=== PATIENT | female | born 1965 | race Caucasian/White ===

== ENCOUNTER 2019-05-12 14:53 | Emergency (ER) | payer MEDICARE, SELFPAY ==
--- NOTE | ~2019-05-12 | XR_ITS ---
EXAMINATION: XR wrist RT min 3V EXAM DATE: 05/12/2019 15:11 INDICATION: No known recent injury provided at this time. Pain of right wrist. Fell 2 days ago. TECHNIQUE: Right wrist frontal, frontal with ulnar deviation, oblique and lateral projections obtain ed and reviewed. There is no prior study for comparison. FINDINGS: Right wrist scapholunate joint space is maintained. There is well-corticated tiny ossifica tion adjacent to ulnar styloid most likely an old ulnar styloid avulsion injury. There are no acute f ractures or dislocations identified. There is no subcutaneous gas. The soft tissue is unremarkable. There are no radiopaque foreign bodies. IMPRESSION: No acute osseous findings suspected. Reviewed, dictated and finalized at location A.
--- NOTE | 2019-05-12 14:56 | ED.UPPEXIN ---
HPI - Extremity Injury (Upper) General Chief Complaint: Extremity Injury, Upper Stated Complaint: Right Wrist Pain Time Seen by Provider: 05/12/19 15:20 Source: patient and RN notes reviewed Mode of arrival: ambulatory Limitations: no limitations History of Present Illness HPI narrative: Patient reports right wrist pain. Reports at [place]lma time she injured the wrist by slamming it into a door frame, she reports that pain has mostly improved. However, she reports yesterday she fell off a garage step and caught herself on the right wrist causing pain. Reports she has been using ice, Aleve. complaint: injury to: right and wrist Related Data Home Medications Medication Instructions Recorded Confirmed No Home Medications 05/12/19 05/12/19 Allergies Allergy/AdvReac Type Severity Reaction Status Date / Time No Known Allergies Allergy Mild Verified 07/05/07 06:58 Review of Systems Review of Systems: Narrative: CONSTITUTIONAL: Denies malaise, chills, sweats, or fever. CARDIOVASCULAR: Denies chest pain, palpitations RESPIRATORY: Denies dyspnea. SKIN: Denies bruising, redness MUSCULOSKELETAL: Reports right wrist pain with mild edema NEUROLOGIC: Denies numbness, weakness. All systems reviewed & are unremarkable except as noted in HPI and below PMFSH Social History Social History Gender identity (if verbalized by the patient): Female Comments At time of signature, agree with nursing past medical, surgical, social and family history. There is no relevant family history pertinent to the presenting complaint Exam Narrative: Exam Narrative: GENERAL: Well-appearing, well-nourished, and in no acute distress. HEAD: Normocephalic, atraumatic. EYES: PERRLA, conjunctivae clear NECK: Supple. CHEST: Speaks in full sentences. No respiratory distress. HEART: Regular rate and rhythm. Normal and equal peripheral pulses. EXTREMITIES: Right wrist, hand, digits right hand have normal strength and sensation, no edema, normal range of motion. 5/5 strength with wrist and digit flexion and extension. Normal sensation with sensitivity to light touch and pain. No clubbing, cyanosis, or edema noted. No tenderness. Skin intact. Normal digital cascade with flexion of fingers, median, ulnar and radial nerve intact. Normal sensation of each side of finger. No open wounds, no skin tenting, no devitalized tissue or atrophy, no trophic changes, no ecchymosis, no obvious deformity, alignment normal, no point tenderness, nearby joints and structures intact. Distal pulses palpable and equal bilaterally, skin warm, dry, pink. Capillary refill less than 3 seconds. SKIN: Warm, dry, no rash. NEURO: Alert and oriented x3. PSYCH: Normal mood and affect Course Course Emergency Course: Patient is aware of diagnosis, understands and agrees to treatment plan. Anticipatory guidance given. Patient agrees to follow-up as directed and is aware of reasons to seek care at the emergency department. Portions of this record may have been created with voice recognition software Vital Signs Vital signs: Vital Signs Temperature 98.9 F 05/12/19 15:13 Pulse Rate 101 H 05/12/19 15:13 Respiratory Rate 20 05/12/19 15:13 Blood Pressure 114/90 05/12/19 15:13 Pulse Oximetry 99 05/12/19 15:13 Temperature 98.9 F 05/12/19 15:13 Pulse Rate 101 H 05/12/19 15:13 Respiratory Rate 20 05/12/19 15:13 Blood Pressure 114/90 05/12/19 15:13 Pulse Oximetry 99 05/12/19 15:13 Reviewed. MDM - Extremity Injury (Upper) MDM Narrative Medical decision making narrative: Patients injury and pain is consistent with musculoskeletal etiology. No signs of neurological or vascular compromise on exam. Compartments and tissues are soft without signs of compartment syndrome. Pain is felt appropriate for further evaluation on an outpatient basis. Differential Diagnosis Differential diagnosis: Likely sprain and strain of wrist, fracture of wrist and fracture of hand I
[2019-05-12 15:13] VITALS: BP 114/90; PULSE 101; RESP 20; TEMP 37.2; O2SAT 99
== END 2019-05-12 15:38 | disposition home or self-care (01) ==
PROVIDERS: Emergency Provider Nurse Practitioner; PCP Nurse Practitioner Adult Health
DX: S63.501A Unspecified sprain of right wrist, initial encounter (principal); S66.911A Strain of unspecified muscle, fascia and tendon at wrist and hand level, right hand, initial encounter; W10.9XXA Fall (on) (from) unspecified stairs and steps, initial encounter
CPT/HCPCS: 73110; 99203; G0463

== ENCOUNTER 2020-01-19 16:20 | Emergency (ER) | payer MEDICARE, SELFPAY ==
--- NOTE | ~2020-01-19 | XR_ITS ---
EXAMINATION: XR shoulder RT min 2V INDICATION: Right shoulder pain TECHNIQUE: Four views of the right shoulder are submitted. COMPARISON: None FINDINGS: Normal alignment. No fracture. 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 Soft tissues are unremarkable. Surgical changes are noted in the cervical spine. IMPRESSION: 1. No acute osseous abnormality. Reviewed, dictated and finalized at location A. HT TECHNICIAN
[2020-01-19 16:43] VITALS: BP 134/85; PULSE 96; RESP 16; TEMP 36.1; O2SAT 97
--- NOTE | 2020-01-19 19:08 | ED.GENADULT ---
HPI - General Adult General Chief complaint: Extremity Injury, Upper Stated complaint: Right shoulder pain Time Seen by Provider: 01/19/20 17:51 Source: patient Mode of arrival: ambulatory Limitations: no limitations History of Present Illness HPI narrative: Patient presents with chief complaint of right shoulder discomfort that presented approximately 1 week ago after falling onto the shoulder while cleaning. Patient states that it was sore when she still have range of motion so she has been applying ice but she still has discomfort especially when laying on the posterior aspect of the arm abducted over her shoulder or trying to sleep. Patient denies any prior fractures or injuries to the shoulder. 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 Patient denies any head impact, loss of consciousness or any other injury. Related Data Allergies Allergy/AdvReac Type Severity Reaction Status Date / Time No Known Allergies Allergy Mild Verified 01/19/20 17:54 Review of Systems Review of Systems: Narrative: CONSTITUTIONAL: Denies fever, chills, or sweats. EYES: Denies visual changes, redness, or discharge. ENT: Denies rhinorrhea, congestion, sore throat, or otalgia. CARDIOVASCULAR: Denies chest pain, palpitations, or edema. RESPIRATORY: Denies cough or dyspnea. GASTROINTESTINAL: Denies abdominal pain, nausea, vomiting, or diarrhea. GENITOURINARY: Denies dysuria or hematuria. SKIN: Denies rash or itching. MUSCULOSKELETAL: Reports right shoulder pain denies back pain or myalgia. NEUROLOGIC: Denies headache, numbness, dizziness, or weakness. PSYCHIATRIC: Denies anxiety or depression. PMFSH Social History Social History Gender identity (if verbalized by the patient): Female Exam Narrative: Exam Narrative: GENERAL: Well-appearing, well-nourished, and in no acute distress. HEAD: Normocephalic, atraumatic. EYES: PERRLA and EOMI. CHEST: Clear to auscultation. No respiratory distress. No wheezes rales or rhonchi HEART: Regular rate and rhythm. No murmur heard. Normal peripheral pulses. EXTREMITIES: No outward signs of deformity or edema to the right shoulder. Patient able to abduct but there is pain with abduction over 90 degrees. Patient is able to internally and externally rotate the shoulder but there is discomfort. 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 There is pain to the anterior aspect of the shoulder as well as the posterior aspect of the shoulder without deformity. SKIN: Warm, dry, no rash. NEURO: No focal deficits. Alert and oriented x3. PSYCH: Normal mood and affect. Course Vital Signs Vital signs: Vital Signs Temperature 97 F L 01/19/20 16:43 Pulse Rate 96 01/19/20 16:43 Respiratory Rate 16 01/19/20 16:43 Blood Pressure 134/85 01/19/20 16:43 Pulse Oximetry 97 01/19/20 16:43 Temperature 97 F L 01/19/20 16:43 Pulse Rate 96 01/19/20 16:43 Respiratory Rate 16 01/19/20 16:43 Blood Pressure 134/85 01/19/20 16:43 Pulse Oximetry 97 01/19/20 16:43 Medical Decision Making MDM Narrative Medical decision making narrative: Discussed with patient that her x-ray was negative for fracture or dislocation. Discussed with patient and using heat and ice as well as anti-inflammatories and muscle relaxant. Patient has been told that she could have strain or sprain of the tendons and ligaments and it is important to follow-up with her primary care retail service specialist for further investigation as physical therapy or MRI imaging to further evaluate the tendons and ligaments may be required. Patient verbalized understanding and agreement of plan denies any other emergent concerns. Differential Diagnosis Differential Diagnosis: Fracture, sprain, strain Vital Signs Vital Signs: Vital Signs Temperature 97 F L 01/19/20 16:43 Pulse Rate 96 01/19/20 16:43 Respiratory Rate 16 01/19/20 16:43 Blood Pressure 134/85 01/19/20 16:43 Pulse Oximetry 97 01/18
[2020-01-19] MEDS: KETOROLAC 30 MG/ML VIAL (*BKC) IM (19:43)
[2020-01-19 19:45] VITALS: BP 151/86; PULSE 80; RESP 16; TEMP 36.8; O2SAT 97
== END 2020-01-19 19:50 | disposition home or self-care (01) ==
PROVIDERS: Emergency Provider Emergency Medicine; PCP Nurse Practitioner Adult Health
DX: S43.401A Unspecified sprain of right shoulder joint, initial encounter (principal); W19.XXXA Unspecified fall, initial encounter
CPT/HCPCS: 73030; 96372; 99283; J1885

== ENCOUNTER 2020-02-20 09:06 | Outpatient (NON) | payer MEDICARE, SELFPAY ==
[2020-02-20 19:32] LABS: SARS-CoV-2 RNA PCR Negative
== END 2020-02-20 09:07 ==
LOC: ANHCOVIDDT 09:07
PROVIDERS: PCP Nurse Practitioner Adult Health; Visit Provider Nurse Practitioner Adult Health
DX: R06.00 Dyspnea, unspecified (principal); Z20.822 Contact with and (suspected) exposure to COVID-19
CPT/HCPCS: C9803; U0003

== ENCOUNTER 2020-02-25 10:00 | Emergency (ER) | payer MEDICARE, SELFPAY ==
[2020-02-25] VITALS (13 sets, daily range): BP systolic 150–162; BP diastolic 88–102; PULSE 79–106; RESP 18–24; TEMP 36.1; O2SAT 94–97
--- NOTE | ~2020-02-25 | XR_ITS ---
EXAMINATION: XR chest 2V DATE: 02/25/2020 10:50 INDICATION: Palpitations. Wheezing. TECHNIQUE: Frontal and lateral views of the chest were obtained. COMPARISON: Chest 2 views 09/27/2017 FINDINGS: The chest demonstrates clear lungs without pneumonia, pleural effusion, or pneumothorax. Th e heart size is normal. There are changes of anterior and posterior fusion procedures in cervical spi ne. IMPRESSION: 1. No acute cardiopulmonary disease. Reviewed, dictated and finalized at location A. SIONS REPAIR TECHNICIAN
--- NOTE | 2020-02-25 10:30 | ECG_ITS ---
Measurements Intervals [place] Rate: 93 P: 63 NE: 148 QRS: 26 QRSD: 85 T: 37 QT: 318 QTc: 396 Interpretive Statements SINUS RHYTHM INCOMPLETE RIGHT BUNDLE BRANCH BLOCK BASELINE ARTIFACT- II, III, AVL, AVF BORDERLINE ECG Electronically Signed On 02-25-2020 11:15:35 CUSTOMER PROGRAM MANAGER by Tyler Blackman D.O.
[2020-02-25 10:43] LABS: Basophils Absolute Auto 0.1 K/mm3 (0.0-0.1); Basophils Percent Auto 0.7 % (0.2-1.2); Eosinophils Absolute Auto 0.3 K/mm3 (0-0.3); Eosinophils Percent Auto 2.7 % (0-4.4); Hemoglobin 13.5 g/dL (12.0-15.0); Immature Granulocyte Absolute 0.06 K/mm3 (0.00-0.031); Immature Granulocyte Percent A 0.5 % (0-0.5); Lymphocytes Absolute Auto 3.53 K/mm3 (0.9-3.2); Lymphocytes Percent Auto 30.1 % (18.3-44.2); Mean Corpuscular HGB Conc 33.8 g/dl (32-36); Mean Corpuscular Hemoglobin 29.9 pg (26-34); Mean Corpuscular Volume 88.7 fl (80-100); Mean Platelet Volume 9.1 fl (7.4-10.4); Monocytes Absolute Auto 0.8 K/mm3 (0.1-0.6); Monocytes Percent Auto 6.4 % (2.6-8.5); Neutrophils Percent Auto 59.6 % (45.5-73.1); Platelet Count Result 316 k/mm3 (150-375); Red Blood Count 4.51 M/mm3 (4.2-5.4); Red Cell Distribution Width 13.2 % (11.5-14.5); White Blood Count 11.7 K/mm3 (4.5-10.0)
[2020-02-25 10:57] LABS: INR 0.9; Prothrombin Time 12.6 Seconds (11.1-14.7)
[2020-02-25 10:58] LABS: Partial Thromboplastin Time 22.7 SECONDS (22.3-36.8)
[2020-02-25 10:59] LABS: Anion Gap 7 mmol/L (8-16); Blood Urea Nitrogen 17 mg/dL (7-17); Calcium 8.8 mg/dL (8.4-10.2); Carbon Dioxide 26 mmol/L (22-30); Chloride 104 mmol/L (98-107); Estimated CRCL calculation 83 ml/min; Estimated Glomerular Filt Rate > 60; Glucose 105 mg/dL (65-105); Potassium 4.2 mmol/L (3.4-5.0); Sodium 137 mmol/L (137-145)
[2020-02-25 11:10] LABS: Troponin I < 0.012 ng/mL (0.000-0.034)
[2020-02-25] MEDS: KETOROLAC 30 MG/ML VIAL (*BKC) IV PUSH (11:21)
[2020-02-25] MEDS: methylPREDNISolone SOD SUCC 125 MG VIAL IV PUSH (11:22)
[2020-02-25] MEDS: KETOROLAC 30 MG/ML VIAL (*BKC) (11:45)
--- NOTE | 2020-02-25 12:35 | ED.GENADULT ---
HPI - General Adult General Chief complaint: Arrhythmia/Palpitations Stated complaint: sick 3 weeks Time Seen by Provider: 02/25/20 10:25 Source: patient Mode of arrival: ambulatory Limitations: no limitations History of Present Illness HPI narrative: Patient is a 54-year-old female who presents with ear discomfort congestion and nonproductive cough for 3 weeks has been put on antibiotics by primary care and is currently on doxycycline patient had just finished steroids patient notes that she has felt some palpitations today that had her concern denying chest pain though her other concerning symptoms such as shortness of breath vomiting diarrhea patient is only seen primary care. Patient denies any heart history. Patient on arrival notes only mild discomfort to the left ear Related Data Allergies Allergy/AdvReac Type Severity Reaction Status Date / Time No Known Allergies Allergy Mild Verified 01/19/20 17:54 Review of Systems Review of Systems: All systems reviewed & are unremarkable except as noted in HPI and below PMFSH Past Medical History Medical History (Updated 02/25/20 @ 12:40 by Barry Sampson PA-C) COPD (chronic obstructive pulmonary disease) Social History Social History (Updated 02/25/20 @ 12:37 by Barry Sampson PA-C) Smoking status: Current every day smoker Gender identity (if verbalized by the patient): Female Exam Narrative: Exam Narrative: Follow up with your primary care doctor in 5-7 days for re-evaluation. Go to ER for worsening pain, vision changes, nausea/vomiting, fever/chills, weakness, chest pain, shortness of breath, change in mental status etc. or any other concerns. Follow-up with specialty referrals for further evaluation as instructed Stay well-hydrated Take any prescribed medications as directed. Course Course Emergency Course: Patient evaluated in the emergency department no high risk changes in the blood work or imaging will be referred back to primary care for further evaluation of her symptoms as well as given pulmonology and cardiology referrals patient at this time resting comfortably no distress was given Solu-Medrol in the emergency department with improvement of her wheezing. Patient notes she has a rescue inhaler at home. Vital Signs Vital signs: Vital Signs Temperature 97.0 F L 02/25/20 10:20 Pulse Rate 98 02/25/20 10:20 Respiratory Rate 18 02/25/20 10:20 Blood Pressure 162/88 H 02/25/20 10:20 Pulse Oximetry 97 02/25/20 10:20 Temperature 97.0 F L 02/25/20 10:20 Pulse Rate 85 02/25/20 12:00 Respiratory Rate 19 02/25/20 12:00 Blood Pressure 150/102 H 02/25/20 10:31 Pulse Oximetry 96 02/25/20 12:00 Medical Decision Making MDM Narrative Medical decision making narrative: Patients EKGs and labs are without significant high risk changes. Cardiac risk factors were reviewed. Patient is felt likely to be low risk for ACS and reasonable for further risk stratification testing as an outpatient. No chest pain. No other signs or symptoms to suggest aortic dissection. A low-risk Wells criteria is noted. PE is felt to be unlikely. No pneumonia seen on evaluation today. Patient is felt to be ITS Impressions Chest X-Ray 02/25/20 10:57 IMPRESSION: 1. No acute cardiopulmonary disease. for continued evaluation as an outpatient. Vital Signs Vital Signs: Vital Signs Temperature 97.0 F L 02/25/20 10:20 Pulse Rate 98 02/25/20 10:20 Respiratory Rate 18 02/25/20 10:20 Blood Pressure 162/88 H 02/25/20 10:20 Pulse Oximetry 97 02/25/20 10:20 Temperature 97.0 F L 02/25/20 10:20 Pulse Rate 85 02/25/20 12:00 Respiratory Rate 19 02/25/20 12:00 Blood Pressure 150/102 H 02/25/20 10:31 Pulse Oximetry 96 02/25/20 12:00 Lab Data Result diagrams: 02/25/20 10:32 02/25/20 10:32 Labs: Lab Results 02/25/20 02/25/20 02/25/20 Range/Units 10:32 10:32 10:32 WBC 11
== END 2020-02-25 12:50 | disposition home or self-care (01) ==
PROVIDERS: Emergency Provider Emergency Medicine; PCP Nurse Practitioner Adult Health
DX: J20.9 Acute bronchitis, unspecified (principal); R00.2 Palpitations; J44.0 Chronic obstructive pulmonary disease with (acute) lower respiratory infection; F17.200 Nicotine dependence, unspecified, uncomplicated; I45.10 Unspecified right bundle-branch block
CPT/HCPCS: 36415; 71046; 80048; 84484; 85025; 85610; 85730; 93005; 96374; 96375; 99284; J1885; J2930

== ENCOUNTER 2024-05-14 16:11 | Emergency (ER) | payer MEDICARE, SELFPAY ==
--- OUTSIDE RECORDS SUMMARY | 2024-05-14 16:13 | XMS_ITS | Data Portability ---
Author Organization [facility] PAULINEBailey Address [address] [place] [address] Assessment No assessment recorded. Plan of Treatment Reminders Order Date Submit Date Provider Last Modified By Organization Details Last Modified Time Details Appointments None recorded. Lab methicill in resistant staphyloc occus aureus, culture, unspecifi ed specimen 2017 018 [facility], [address] [facility], [address], [place], [address], 8 20:09:05 urinalysi s, dipstick 2016 017 jesus In-Office Order, Internal Use Only DO Not Attach Compendium DO Not Attach Compendium, Do Not Delete/merge, [id number] 7 16:36:27 test, urine 2016 017 jesus In-Office Order, Internal Use Only DO Not Attach Compendium DO Not Attach Compendium, Do Not Delete/merge, [id number] 7 16:36:27 pap, IG + HPV, cervical 2016 017 [facility], [address] [facility], [address], [place], [address], 7 16:17:58 Referral breast surgery referral - Patient intereste d in breast reduction 2014 015 ATHENAFAX Not available 5 14:56:12 Procedures None recorded. Surgeries None recorded. Imaging MAMMO, screening , bilateral 2017 018 bmoser [facility], [address] [place], [address], 8 17:07:59 [facility]AMMO, screening , digital, bilateral 2016 [facility] [address] [place] [address], [address], 7 16:41:57 mammogram , screening 2014 015 bmoser Not available 5 09:57:20 Medication Orders Bactrim DS 800 mg-160 mg tablet 2017 018 [facility] [facility], [facility], [place], [address], 8 15:37:00 mupirocin 2 % topical ointment 2017 018 [facility] [address] [facility], [facility], [place], [address], 8 16:30:00 multivita min tablet 2017 018 INTERFACE [facility] [address] [facility], [address] [facility], [place], [address], 8 15:35:05 [place] 0.25 mg-0.035 mg tablet 2017 018 [facility] [address] [place] [address] [facility], [place], [address], 8 15:35:07 calcium 600 mg (as carbonate )-vitamin D3 20 mcg (800 unit) tablet 2017 018 [facility] [address] [address] [place] [address] [facility], [place], [address], 8 15:35:05 sertralin e 100 mg tablet 2017 018 [facility] [address] [facility], [address] [place], [address], 8 15:35:06 calcium 600 mg (as carbonate )-vitamin D3 20 mcg (800 unit) tablet 2016 017 [facility] [address], [address], 7 16:37:10 multivita min tablet 2016 017 [facility] [facility], [address] [place] [address], [address], 7 16:37:11 [place] 0.25 mg-0.035 mg tablet 2016 017 [facility] [address] [address] [place] [address] [place], [address], 7 16:40:24 sertralin e 100 mg tablet 2016 017 [facility] [address] [address] [facility] [address] [place], [address], 7 16:36:29 Activella 0.5 mg-0.1 mg tablet 2014 015 [id number], [address], [place], [id number], 7 16:39:51 Zoloft 100 mg tablet 2014 015 [id number], [address], [place], [id number], 5 16:06:00 Patient TargetsNo targets recorded. Patient Instructions Encounter Date Encounter Id Patient Instructions Last Modified By Organization Details Last Modified Time 09/15/2014 [id number] learning about breast cancer screening [email or web address] Not available 09/15/2014 16:12:57 learning about menopause mwasserman Not available 09/15/2014 16:05:53 anxiety disorder: care instructions mwasserman Not available 09/15/2014 16:05:52 learning about anxiety disorders mwasserman Not available 09/15/2014 16:05:53 learning about mood disorders mwasserman Not available 09/15/2014 16:05:53 03/21/2016 [id number] mammogram: about this test mwasserman Not available 03/21/2016 16:41:57 seasonal affective disorder: care instructions mwasserman Not available 03/21/2016 16:41:57 learning about mood disorders mwasserman Not available 03/21/2016 16:41:57 02/20/2017 [id number] mammogram: about this test mwasserman Not available 02/20/2017 15:33:19 mammogram screening patient instructions mwasserman Not available 02/20/2017 15:33:19 MRSA: care instructions mwasserman Not available 02/20/2017 15:36:56 learning about menopause mwasserman Not available 02/20/2017 15:35:02 anxiety disorder: care instructions mwasserman Not available 02/20/2017 15:35:02 learning about anxiety disorders mwasserman Not available 02/20/2017 15:35:02 learning about mood disorders mwasserman Not available 02/20/2017 15:33:19 Reason for Referral Breast Surgery Referral for Screening for malignant neoplasm of breast Patient interested in breast reduction Referring Physician: Chad Alberto, PLANER OPERATOR, Encounter Date: 09/15/2014 Results Created Date Observation Date Name Description Value Unit Range Abnormal Flag Note LastModifiedBy Organization Detail LastModifiedTime 03/21/19 17 03/21/2016 pregn marquis test, urine HCG negati ve Not Available In-Office Order Internal Use Only DO Not Attach Compendium DO Not Attach Compendium, Do Not Delete/merge, [id number] 03/21/2016 16:17:40 03/21/19 17 03/21/2016 urina lysis , dipst ick Leukocytes Negati ve Not Available In-Office Order Internal Use Only DO Not Attach Compendium DO Not Attach Compendium, Do Not Delete/merge, [id number] 03/21/2016 16:16:43 03/21/19 17 03/21/2016 urina lysis , dipst ick Nitrite negati ve Not Available In-Office Order Internal Use Only DO Not Attach Compendium DO Not Attach Compendium, Do Not Delete/merge, 03/21/2016 16:16:43 03/21/19 17 03/21/2016 urina lysis , dipst ick Urobilinogen .2 Not Available In-Of fice Order Internal Use Only DO Not Attach Compendium DO Not Attach Compendium, Do Not Delete/merge, 03/21/2016 16:16:43 03/21/19 17 03/21/2016 urina lysis , dipst ick Protein Negati ve Not Available In-Office Order Internal Use Only DO Not Attach Compendium DO Not Attach Compendium, Do Not Delete/merge, 03/21/2016 16:16:43 03/21/19 17 03/21/2016 urina lysis , dipst ick pH 5.5 Not Available In-Office Order Internal Use Only DO Not Attach Compendium DO Not Attach Compendium, Do Not Delete/merge, 03/21/2016 16:16:43 03/21/19 17 03/21/2016 urina lysis , dipst ick Blood Small Not Available In-Office Order Internal Use Only DO Not Attach Compendium DO Not Attach Compendium, Do Not Delete/merge, 03/21/2016 16:16:43 03/21/19 17 03/21/2016 urina lysis , dipst ick Specific [place] 1.020 Not Available In-Off ice Order Internal Use Only DO Not Attach Compendium DO Not Attach Compendium, Do Not Delete/merge, 03/21/2016 16:16:43 03/21/19 17 03/21/2016 urina lysis , dipst ick Ketone Negati ve Not Available In-Office Order Internal Use Only DO Not Attach Compendium DO Not Attach Compendium, Do Not Delete/merge, 03/21/2016 16:16:43 03/21/19 17 03/21/2016 urina lysis , dipst ick Bilirubin Negati ve Not Available In-Office Order Internal Use Only DO Not Attach Compendium DO Not Attach Compendium, Do Not Delete/merge, 03/21/2016 16:16:43 03/21/19 17 03/21/2016 urina lysis , dipst ick Glucose Negati ve Not Available In-Office Order Internal Use Only DO Not Attach Compendium DO Not Attach Compendium, Do Not Delete/merge, [id number] 03/21/2016 16:16:43 03/21/19 17 03/21/2016 urina lysis , dipst ick Appearance Clear Not Available In-Offi ce Order Internal Use Only DO Not Attach Compendium DO Not Attach Compendium, Do Not Delete/merge, 03/21/2016 16:16:43 03/21/19 17 03/21/2016 urina lysis , dipst ick Color Yellow Not Available In-Office Order Internal Use Only DO Not Attach Compendium DO Not Attach Compendium, Do Not Delete/merge, 03/21/2016 16:16:43 03/21/19 17 03/23/2016 pap, IG + HPV, cervi shana diagnosis: COMMEN T NEGAT HAL FOR INTRA EPITH ELIAL LESJACK N AND VALERIE ORTEGA . THIS SPECI MEN WAS RESCR EENED PART OF OUR QUALI TY CONTR OL PROGR AM. Not Available [facility] ([facility]) [address], [place], [address], 03/23/2016 16:17:58 03/21/19 17 03/23/2016 pap, IG + HPV, cervi shana specimen adequacy: COMMEN T SATIS FACTO RY FOR EVALU ATION . ENDOC ERVIC AL AND/O R SQUAM OUS METAP LASTI C CELLS (ENDO CERVI SHANA COMPO NENT) ARE PRESE NT. Not Available [facility] ([facility]) [address], [place], [address], 03/23/2016 16:17:58 03/21/19 17 03/23/2016 pap, IG + HPV, cervi shana clinician provided ICD10: CLAIR T Z01.4 19 Not Available [facility] ([facility]) [address], [place], [address], 03/23/2016 16:17:58 03/21/19 17 03/23/2016 pap, IG + HPV, cervi shana performed by: CLAIR RENDON, CYTOT ECHNO LOGIS T (ASCP ) Not Available [facility] ([facility]) [address] [place], [address], 03/23/2016 16:17:58 03/21/19 17 03/23/2016 pap, IG + HPV, cervi shana QC reviewed by: IESHA FOWLER Y CYTOT ECHNO LOGIS T (ASCP ) Not Available [facility] ([facility]) [address] [place], [address], 03/23/2016 16:17:58 03/21/19 17 03/23/2016 pap, IG + HPV, cervi shana . . Not Available [facility] ([facility]) [address] [place], [address], 03/23/2016 16:17:58 03/21/19 17 03/23/2016 pap, IG + HPV, cervi shana note: CLAIR Machado THE PAP SMEAR IS A SCREE ISAÍAS TEST DESIG EMMANUEL TO AID IN THE DETEC TION OF TOMMY LIGNA NT AND MALIG NANT CONDI TIONS OF THE UTERI NE CERVI X. IT IS NOT A DIAGN OSTIC PROCE DURE AND SHOUL D NOT BE USED THE SOLE MEANS OF DETEC TING CERVI SHANA CANCE R. BOTH FALSE -POSI TIVE AND FALSE -NEGA TIVE REPOR TS DO OCCUR . Not Available [facility] ([facility]) [address] [place], [address], 03/23/2016 16:17:58 03/21/19 17 03/23/2016 pap, IG + HPV, cervi shana test methodology: CLAIR Machado THIS LIQUI D BASED THINP REP(R ) PAP TEST WAS SCREE EMMANUEL WITH THE USE OF AN IMAGE GUIDE Byron Armstrong. Not Available [facility] ([facility]) [address] [place], [address], 03/23/2016 16:17:58 03/21/19 17 03/23/2016 pap, IG + HPV, cervi shana HPV aptima NEGATI VE negati ve THIS TEST DETEC TS FOURT EEN HIGH- RISK HPV TYPES (16/1 8/31/ 33/35 /39/4 5/ 51/52 /56/5 8/59/ 66/68 ) WITHO UT DIFFE RENTI ATION . Not Available [facility] ([facility]) [address], [place], [address], 03/23/2016 16:17:58 02/20/19 18 02/22/2017 methi cilli n resis tant staph yloco ccus aureu s, cultu re, unspe cifie d speci men MRSA screening culture Negati ve Not Available [facility] ([facility]) [address], [place], [address], 02/22/2017 20:09:05 Result Notes None recorded. Problems Name Problem SNOMED Code Status Onset Date Resolution Date Notes Provider Name and Address Organization Details Recorded Time Perimenopausal disorder 732873998 Active Chad Alberto null, [facility] 5 17:58:05 Anxiety disorder 182782328 Active Chad Alberto null, [place] - [facility] 5 16:05:52 Depressive disorder 17099148 Active Chad Alberto null, [place] [facility] 5 17:58:05 Problem Notes None recorded. Procedures Surgical History Date Name Laterality Status Provider Name and Address Organization Details Recorded Time 4 Date of Last Pap Smear completed BASIL Gonzalez [place] 09/15/2014 15:00:08 0 Orthopedic Surgery completed BASIL Gonzalez 09/15/2014 15:10:48 9 Orthopedic Surgery completed BASIL Gonzalez [place] 09/15/2014 15:10:48 7 Caesarean Section completed BASIL Gonzalez 09/15/2014 15:10:48 3 Caesarean Section completed BASIL Gonzalez [facility] 09/15/2014 15:10:48 Imaging Results None recorded. Procedure Notes None recorded. Medical Equipment None Reported. Allergies No known drug allergies Medications Name Sig Start Date Stop Date Status Note LastModified by Organization Details LastModified Time multivitami n tablet Take 1 tablet every day by oral route. 2017 active Not Available Not Available Not Avai lable azithromyci n 250 mg tablet TAKE 2 TABLETS BY MOUTH TODAY, THEN TAKE 1 TABLET DAILY FOR 4 DAYS active Not Available Not Available No t Available meloxicam 15 mg tablet TAKE 1 TABLET BY MOUTH EVERY DAY NEEDED active Not Available Not Available No t Available sertraline 100 mg tablet TAKE 2 TABLETS BY MOUTH EVERY DAY active Not Available Not Available No t Available mupirocin 2 % topical ointment APPLY A SMALL AMOUNT TO THE AFFECTED AREA BY TOPICAL ROUTE 3 TIMES PER DAY 2017 active Not Available Not Available Not Avai lable estradiol 0.5 mg tablet Take 1 tablet every day by oral route. 03/21 completed Not Available Not Available Not Available methylpredn isolone 4 mg tablets in a dose pack TAKE 6 TABLETS ON DAY 1 DIRECTED ON PACKAGE AND DECREASE BY 1 TAB EACH DAY FOR A TOTAL OF 6 DAYS active Not Available Not Available No t Available Bactrim DS 800 mg-160 mg tablet Take 1 tablet every 12 hours by oral route for 14 days. 2017 active Not Available Not Available Not Avai lable Activella 0.5 mg-0.1 mg tablet Take 1 tablet every day by oral route. 03/21 completed Not Available Not Available Not Available calcium 600 mg (as carbonate)- vitamin D3 20 mcg (800 unit) tablet Take 1 tablet twice a day by oral route for 30 days. 2017 active Not Available Not Available Not Avai lable Beverly 0.25 mg-0.035 mg tablet TAKE 1 TABLET BY MOUTH EVERY DAY active Not Available Not Available No t Available Vitals Date Recorded Body height Body mass index (BMI) Body weight Systolic blood pressure Diastolic blood pressure Provider Name and Address Organization Details Last Updated DateTime 02/20/2017 157.48 cm 26.3 kg/m2 83408.3 g 132 mm[Hg] 74 mm[Hg] Louisa Pagan MA [place] - [facility] 8 15:12:45 Date Recorded Body height Body mass index (BMI) Body weight Systolic blood pressure Diastolic blood pressure Provider Name and Address Organization Details Last Updated DateTime 09/15/2014 157.48 cm 26.5 kg/m2 84506.89 365 g 108 mm[Hg] 68 mm[Hg] Rosana Madera MA [facility] 5 15:20:23 Date Recorded Body height Body weight Body mass index (BMI) Systolic blood pressure Diastolic blood pressure Provider Name and Address Organization Details Last Updated DateTime 03/21/2016 157.48 cm 69516.15 g 25.1 kg/m2 126 mm[Hg] 70 mm[Hg] Marcos Schaeffer MA [facility] 7 16:10:26 Social History Question Answer Notes LastModified by Organizat ion Details LastModified Time Tobacco Smoking Status Current Every Day Smoker Rosana Madera MA null, [facility] 09/15/2014 15:18:55 Do You Have An Advance Directive? Yes Information not available 09/15/2014 What Is Your Level Of Alcohol Consumption? None Information not available 09/15/2014 Is Blood Transfusion Acceptable In An Emergency? Yes Information not available 09/15/2014 What Is Your Level Of Caffeine Consumption? Occasional Information not available 09/15/2014 How Much Tobacco Do You Chew? None Information not available 09/15/2014 Are You Currently Employed? No Information not available 09/15/2014 What Type Of Diet Are You Following? REGULAR Information not available 09/15/2014 Which Illicit Or Recreational Drugs Have You Used? None Information not available 09/15/2014 Education 12 Information no t available 09/15/2014 What Is Your Occupation? Disabled Information not available 09/15/2014 Live Alone Or With Others? Alone Information not available 09/15/2014 What Was The Date Of Your Most Recent Tobacco Screening? 02/20/2017 Information not available 09/04/2018 How Many Children Do You Have? 1 Information not available 09/15/2014 Performs Monthly Self-breast Exam? Yes Information no t available 09/15/2014 Do You Use Protection During Sex? No Information not available 09/15/2014 What Is Your Relationship Status? Information not available 09/15/2014 Seat Belts Used Routinely Yes Information not available 09/15/2014 Are You Sexually Active? Yes Information not available 09/15/2014 At What Age Did You Start Smoking Tobacco? 13 Information not available 09/15/2014 How Much Tobacco Do You Smoke? 0.5 PPD Information not available 09/15/2014 General Stress Level Medium Information not available 09/15/2014 Do You Use Sunscreen Routinely? Yes Information not available 09/15/2014 How Many Years Have You Smoked Tobacco? 45 Information not available 09/15/2014 Sex: Unknown Functional Status Question Answer Note LastModified by Organization D etails LastModified Time What is your exercise level? None Information not available 09/15/2014 Mental Status None recorded. Family History Relationship Description Onset Age of this Age Resolved Age Notes LastModified by Organization Details LastModified Time Son Benign neoplasm of brain 2 mwasserman Not available 09/15 16:00:11 Paternal Grandmother Heart disease mwasserman Not available 09/15 16:00:11 Father Heart disease mwasserman Not available 09/15 16:00:11 Paternal Aunt Diabetes mellitus mwasserman Not available 09/15 16:00:11 Maternal Grandmother Malignant tumor of stomach mwasserman Not available 09/15 16:00:11 Mother Hypercholest erolemia mwasserman Not available 09/15 16:00:11 Medical History No medical history recorded. Gynecological History Statement/Question Response Abnormal Pap N Flow Heavy On BCP's at Conception? Y STIs/STDs N HPV Vaccine N Duration of Flow (days) Age at Menarche 10 Current Control Method BCPs Age at First Child 25 If Post Menopausal, Age at Menopause 48 Frequency of Cycle (Q days) 7 Sexually Active? Y Menses Monthly N Date of Last Pap Smear 02/25/2013 Sexual Problems? Y LMP Approximate Desired Control Method N/A Obstetrics History GPAL:G 2 P 2 0 0 1 Type Value Multiple Births 0 Full Term 2 Induced 0 Spontaneous 0 Premature 0 Living 1 Ectopics 0 Total 2 Past Encounters Encounter ID Performer Location Encounter Start Date Encounter Closed Date Diagnosis/Indication Diagnosis SNOMED-CT Code Diagnosis ICD10 Code Diagnosis Note [id number] EMEKA Chavez (PLANER OPERATOR) [address] [place] [phone] 09/15/2014 14:20:37 09/15/2014 16:01:18 Perimenopausal disorder 530691727 Anxiety disorder 587870420 Depressive disorder 03560952 Screening for malignant neoplasm of breast 335498511 [id number] Chad Wright (PLANER OPERATOR) [address] [place] [phone] 03/21/2016 15:54:29 03/22/2016 15:59:43 Gynecologic examination 68447280 Z01.419 Depressive disorder 3548 9007 F33.9 Seasonal a ffective disorder 874563787 F33.9 Family melyssa nning surveillance 395817099 Z30.09 Screening mammography 24 318601 Z12.31 [id number] Chad Wright (PLANER OPERATOR) [address] [place] [phone] 02/20/2017 14:39:04 02/20/2017 16:21:18 Depressive disorder 88324250 F33.9 Screening mammography 24 199364 Z12.31 Perimenopa usal disorder 147931134 N95.9 Anxiety disorder 1667270 06 F41.9 Family melyssa nning surveillance 358996471 Z30.09 Methicilli n resistant Staphylococcus aureus infection 738886902 A49.02 Health Concerns Section Related Observation LastModified by Organization Detai ls LastModified Time None Recorded Concern Status LastModified by Organization Details LastModified Time None Recorded Advance Directives Directive Y: Payers Encounter Date Sequence Insurance Name Policy Number Policy [place]o Covered Member ID Del Toro Member ID Guarantor Name 09/15/2014 1 [place] Estela Rodriguezhomaxim [id number] Estela Murray 03/21/2016 1 [place] Estela Marina Rodriguezhok [id number] Estela Jenniferhomaxim 02/20/2017 1 [place] Estela Rodriguezhok [id number] Estela Jenniferhomaxim Notes Date Note Type Note Provider Name and Address Organization Details Recorded Time 03/21/2016 text/html Annual GYNReport ed bypatient.History: no gynecologic complaints Menstrual cycle:Normal menses Urinary symptoms:No hematuria; No incontinence Vulva:No genital lesion Vagina:Normal vaginal discharge Breast:No breast pain; No breast lump; No nipple discharge Sexual complaints:No sexual complaints; No pain during intercourse; Normal libido Menopausal Symptoms:No menopausal symptoms; Normal vaginal lubrication Psychological symptoms:No depression; No anxiety; No PMDD Preventive measures:Encourage self breast examination; Encourage regular exercise; Encourage no tobacco use; Encourage regular mammograms starting age 40; Followed with Q3 year pap smear and high risk HPV typing; Needs to schedule mammogram; Needs to schedule colonoscopy 50 yo wf here for wwKayla florence [facility] 03/22/2016 14:17:38 02/20/2017 text/html Annual GYNReport ed bypatient.History: no gynecologic complaints Menstrual cycle:Normal menses Urinary symptoms:No hematuria; No incontinence Vulva:No genital lesion Vagina:Normal vaginal discharge Breast:No breast pain; No breast lump; No nipple discharge Sexual complaints:No sexual complaints; No pain during intercourse; Normal libido Menopausal Symptoms:No menopausal symptoms; Normal vaginal lubrication Psychological symptoms:No depression; No anxiety; No PMDD Preventive measures:Encourage self breast examination; Encourage regular exercise; Encourage no tobacco use; Encourage regular mammograms starting age 40; Followed with Q3 year pap smear and high risk HPV typing; Needs to schedule mammogram; Needs to schedule colonoscopy 50 yo wf here for cbe Chad Alberto naman [facility] 02/20/2017 15:40:34 OBGyn Episode Ob Episode Information Episode Created Date Number of Fetuses Patient Bloodtype Patient rh Status Prepregnancy Weight lbs Domestic Partner Domestic Partner Phone Father Name Stack Yield Engineer Status 09/16/19 15 1 CLOSED Fetus Data First Name Last Name Admitted to NICU Weight (g) Sex Living Outcome Pediatric Complications Fetus ID Race Codes Race Delivery Type 3488.12 248 F Full Term [id number] Franko Calculation Initial Franko Date Initial Exam Date Initial Exam Provider Initial Ultrasound Date Last Menstrual Period Date Ultra Sound Weeks Gestation 0 Eighteen To Twenty Week Franko Update Ultra Sound Date Fundal Height At Umbil Quickening Date Ultra Sound Latest Weeks Gestation Final Franko Confirmed By Final Franko Confirmed Date Final Franko Date Ultra Sound Latest Days Gestation 0 0 Menstrual History Last Menstrual Date Menses Monthly On Bcp Conception Prior Menses Frequency Hcg Plus Date Menarche Onset Age Delivery Information Delivery Date Delivery Type Labor Anesthesia Weeks Gestation Incision Type Labor Labor Length Hrs Delivered By Post Complications Tubal Sterilization Discharge Date Comments 3 [facility] 40 19 Discharge Information Feeding Method Contraceptive Method Maternal HG B and HCT Levels Ob Episode Information Episode Created Date Number of Fetuses Patient Bloodtype Patient rh Status Prepregnancy Weight lbs Domestic Partner Domestic Partner Phone Father Name Stack Yield Engineer Status 09/16/19 15 1 CLOSED Fetus Data First Name Last Name Admitted to NICU Weight (g) Sex Living Outcome Pediatric Complications Fetus ID Race Codes Race Delivery Type 4195.72 6 M Full Term [id number] Franko Calculation Initial Franko Date Initial Exam Date Initial Exam Provider Initial Ultrasound Date Last Menstrual Period Date Ultra Sound Weeks Gestation 0 Eighteen To Twenty Week Franko Update Ultra Sound Date Fundal Height At Umbil Quickening Date Ultra Sound Latest Weeks Gestation Final Franko Confirmed By Final Franko Confirmed Date Final Franko Date Ultra Sound Latest Days Gestation 0 0 Menstrual History Last Menstrual Date Menses Monthly On Bcp Conception Prior Menses Frequency Hcg Plus Date Menarche Onset Age Delivery Information Delivery Date Delivery Type Labor Anesthesia Weeks Gestation Incision Type Labor Labor Length Hrs Delivered By Post Complications Tubal Sterilization Discharge Date Comments 7 [facility] id[facility] 40 21 Discharge Information Feeding Method Contraceptive Method Maternal HG B and HCT Levels
--- OUTSIDE RECORDS SUMMARY | 2024-05-14 16:13 | XMS_ITS | Clinical Summary ---
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 Role Phone Unavailable Primary Care Provider Unavailabl e Social History Tobacco Use Types Packs/Day Years Used Date Smoking Tobacco: Never Assessed Comments Unknown Sex and Gender Information Value Date Recorded Sex Assigned at Not on file Legal Sex Female 2:40 PM CDT Gender Identity Not on file Sexual Orientation Not on file Plan of Treatment Health Maintenance Due Date Last Done Comments Cervical Cancer Screening Pa p Smear (Age 30 to 64) Every 3 Years 1963 Colorectal Cancer Screening Colonoscopy (10 Years) 1963 Annual Physical 10/12/1966 Hepatitis C 10/12/1981 DTaP, Tdap and Td Vaccines ( 1 - Tdap) 10/12/1982 Cervical Cancer Screening Pa p with HPV Testing (Age 30 to 64) Every 5 Years 10/12/1993 Cervical Cancer Screening with HPV 10/12/1993 Mammogram Screening 2003 Zoster Vaccines (1 of 2) 10/12/2013 COVID-19 Vaccine (2023-2 5 season) 2023 Influenza Adult (#1) 2023 RSV Immunization or 60+ Years (1 - 1-dose 75+ series) 10/12/2038 Meningococcal B Vaccine Aged Out No l onger eligible based on patient's age to complete this topic Meningococcal Vaccine Aged Out No dustin zack eligible based on patient's age to complete this topic Pneumococcal Vaccine: Pediat rics (0 to 5 Years) and At-Risk Patients (6 to 64 Years) Aged Out No longer eligible b ased on patient's age to complete this topic RSV Immunizations Under 20 Months Aged Out No longer eligible based on patient's age to complete this topic
[2024-05-14 16:23] VITALS: BP 120/83; PULSE 86; RESP 18; TEMP 36.6; O2SAT 100
--- NOTE | 2024-05-14 16:32 | ED_ITS ---
HPI - Eye Problem General Chief complaint: Wound/Laceration Stated complaint: right eye irritation Time Seen by Provider: 05/14/24 16:15 Source: patient Mode of arrival: ambulatory Limitations: no limitations History of Present Illness HPI Narrative: Please is a 4-year-old female patient presenting to the clinic today with complaints of right eye redness, itching, and drainage as well as some sores on her bilateral thumbs. She thinks she may have a staph infection. Symptoms the of the eye started yesterday however she has had the sores on the thumb for few days. No known fever. Related Data Allergies Allergy/AdvReac Type Severity Reaction Status Date / Time No Known Allergies Allergy Mild Verified 05/14/24 16:26 Review of Systems Review of Systems: Pertinent positives per HPI. Patient denies any fever, chills, rash, headache, visual changes, dizziness, cough, runny nose, sore throat, shortness of breath, chest pain, palpitations, nausea, vomiting, diarrhea, constipation, abdominal pain, or any urinary issues. [facility] Past Medical History Medical History COPD (chronic obstructive pulmonary disease) Social History Social History Smoking status: Current every day smoker Gender identity (if verbalized by the patient): Female Comments At the time of my signature, I reviewed and agree with the nursing past medical, surgical, social, and family history. There is no relevant family history pertinent to the patient complaint. Exam Narrative: General: Well-developed, well nourished, in no apparent distress Head: Normocephalic, atraumatic Eyes: Pupils equally round and reactive to light bilaterally, EOM intact, left sclera and conjunctive clear, no discharge, lids normal, right sclera and conjunctiva injected with yellow mucopurulent discharge and mild swelling, Ears: TMs intact and clear, ear canals clear, no drainage, grossly hearing normal. Nose: Nares patent, no discharge, no inflammation, no sinus tenderness. Mouth: Oropharynx without lesions or masses, good dentition, MMM. Neck: Supple, trachea midline, no enlargement of anterior or posterior cervical nodes, no thyroid masses or goiter palpable. Cardio: Regular rate and rhythm, s1 and s2 normal, no murmur appreciated. Resp: Clear to auscultation bilaterally anteriorly and posteriorly, no rhonchi, rales, wheezing or rubs Integumentary: Roland, warm, and dry, sores to right thumb and left 2nd her finger scabbed over with yellow crusting Course Course Emergency Course: Portions of this record may have been created with voice recognition software. Level of Care: Express Care Visit Vital Signs Vital signs: Vital Signs Temperature 36.6 C 05/14/24 16:23 Pulse Rate 86 05/14/24 16:23 Respiratory Rate 18 05/14/24 16:23 Blood Pressure 120/83 05/14/24 16:23 Pulse Oximetry 100 05/14/24 16:23 Oxygen Delivery Room Air 05/14/24 16:23 Temperature 36.6 C 05/14/24 16:23 Pulse Rate 86 05/14/24 16:23 Respiratory Rate 18 05/14/24 16:23 Blood Pressure 120/83 05/14/24 16:23 Pulse Oximetry 100 05/14/24 16:23 Oxygen Delivery Room Air 05/14/24 16:23 Vital signs reviewed MDM - Eye Problem MDM Narrative Medical decision making narrative: At the time of visit patient is resting comfortably on the exam table. Patient appears to be nontoxic. Plan: I suspect patient has a skin infection as well as right-sided conjunctivitis. Prescription for mupirocin cream and polymyxin eyedrops was sent to the pharmacy. Supportive measures were discussed with the patient and they voiced understanding discharge instructions and agrees to treatment plan. Return precautions reviewed Differential Diagnosis Differential diagnosis: Likely corneal abrasion, conjunctivitis, acute iritis, hyphema, periorbital cellulitis, subconjunctival hemorrhage, glaucoma, corneal ulcer, ruptured globe and other (skin infection, cellulitis) Discharge Plan Discharge Clinical Impression: Bacterial skin infection Acute conjunctivitis, right eye Qualifiers: Acute conjunctivitis type: bacterial Qualified Code(s): H10.31 - Unspecified acute conjunctivitis, right eye Patient Disposition: Home, Self-Care Condition: Stable Instructions: Antibiotic Form, Cellulitis (ED), Conjunctivitis (ED) Additional Instructions: Conjunctivitis is considered contagious for 24 hours while on the antibiotic. Practice good hand washing techniques Keep areas clean and dry Avoid touching eyes Instill eyedrops as prescribed Apply mupirocin cream as directed May use warm moist washcloth to help remove eye discharge If eyes are matted shut-do not pry eyes open-use a warm moist cloth to loosen matting and wipe matter away from eye May take Tylenol/Motrin as needed for pain or fever May take Benadryl as needed for itching Follow-up with your PCP in 3-5 days if symptoms persist or sooner if they worsen Go to the emergency room if you develop any fever that is not controlled by Tylenol or Motrin, loss of vision, eye pain, increase eye swelling,visual changes, headache, confusion, lethargy, weakness, chest pain, or shortness of breath. Patient Language: Guyanese Prescriptions: New mupirocin [Centany] 2 % ointment 1 applic topical BID 7 Days Qty: 22 0RF polymyxin B sulf-trimethoprim 10,000 unit- 1 mg/mL drops 1 drp RIGHT EYE Q3H 7 Days Qty: 10 0RF Rx Instructions: while awake; do not exceed 6 doses in 24 hours No Action naproxen 500 mg tablet 500 mg PO BID PRN (Reason: pain) Qty: 20 0RF cyclobenzaprine 10 mg tablet 10 mg PO TID PRN (Reason: muscle spasm) Qty: 20 0RF montelukast [Singulair] 10 mg tablet 10 mg PO DAILY Qty: 10 0RF Flonase Sensimist 27.5 mcg/actuation spray,suspension 2 spray intranasal DAILY Qty: 5.9 0RF Rx Instructions: into each nostril loratadine [Claritin] 10 mg tablet 10 mg PO DAILY PRN (Reason: allergy symptoms) Qty: 10 0RF Follow-up/Referrals: Drew,ELMER Luna [Primary Care Provider] - Quality NIHSS Nursing Documentation ED NIHSS nursing documentation: reviewed/agree
== END 2024-05-14 16:39 | disposition home or self-care (01) ==
PROVIDERS: Emergency Provider Nurse Practitioner Family; PCP Physician Assistant
DX: L08.9 Local infection of the skin and subcutaneous tissue, unspecified (principal); B96.89 Other specified bacterial agents as the cause of diseases classified elsewhere; H10.31 Unspecified acute conjunctivitis, right eye; J44.9 Chronic obstructive pulmonary disease, unspecified; F17.200 Nicotine dependence, unspecified, uncomplicated
CPT/HCPCS: 99213; G0463